=== PATIENT | male | born 1965 ===

== ENCOUNTER 2020-10-18 04:29 | Day surgery (SDC) | payer OTHER ==
[2020-10-17 10:33] VITALS: BMI 24.0
[2020-10-18 11:17] VITALS: TEMP 98
[2020-10-18 11:49] VITALS: BP 117/76; PULSE 81
== END 2020-10-18 12:20 | disposition home or self-care (01) ==
LOC: JASU-ENDO 04:29
PROVIDERS: ATTEND Internal Medicine Gastroenterology
PROC: 0DJD8ZZ Inspection of Lower Intestinal Tract, Via Natural or Artificial Opening Endoscopic (ICD-10-PCS; principal; 2020-10-18 10:46)
DX: Z12.11 Encounter for screening for malignant neoplasm of colon (principal)
CPT/HCPCS: 82962